=== PATIENT | female | born 1975 | race Caucasian/White ===

== ENCOUNTER → 2016-12-30 | Outpatient (CLI) | payer OTHER | LOC: FIMAGING 16:59 | PROVIDERS: ATTEND Midwife | DX: N83.202 Unspecified ovarian cyst, left side (principal) ==

== ENCOUNTER → 2017-01-27 | Outpatient (CLI) | payer OTHER | LOC: FIMAGING 15:48 | PROVIDERS: ATTEND Midwife | DX: N83.02 Follicular cyst of left ovary (principal); Z90.721 Acquired absence of ovaries, unilateral ==

== ENCOUNTER → 2017-10-16 | Outpatient (CLI) | payer OTHER | LOC: BMCIMAGING 08:09 | PROVIDERS: ATTEND Midwife | DX: N94.89 Other specified conditions associated with female genital organs and menstrual cycle (principal) ==

== ENCOUNTER → 2017-12-29 | Outpatient (CLI) | payer OTHER | LOC: FIMAGING 16:35 | PROVIDERS: ATTEND Midwife | DX: N83.02 Follicular cyst of left ovary (principal); N80.9 Endometriosis, unspecified; Z90.721 Acquired absence of ovaries, unilateral ==

== ENCOUNTER 2018-01-02 15:35 | Emergency (ER) | payer OTHER ==
[2018-01-02] MEDS ORDERED: RANITIDINE 50 MG/2 ML VIAL IVP ONE (15:40)
[2018-01-02] MEDS ORDERED: NS 1,000 ML IV ONE (15:40)
[2018-01-02] MEDS ORDERED: methylPREDNISolone SOD SUCC 125 MG/2 ML VIAL IVP ONE (15:40)
--- NOTE | 2018-01-02 15:40 | EDPHY ---
H & P Time Seen by Provider: 01/02/18 15:37 HPI/ROS: CHIEF COMPLAINT: Face and lip swelling, trouble breathing HISTORY OF PRESENT ILLNESS: Patient had previous anaphylaxis 15 years ago. Ate sushi today at [facility] and very soon afterwards then developed lip swelling and facial swelling as well as trouble breathing nausea and skin rash. Associated with itching. Symptoms severe. Associated with some nausea and some abdominal cramping as well. REVIEW OF SYSTEMS: Eye: no change in vision ENT: HPI Cardiac: no chest pain or syncope Pulmonary: Not coughing Abdomen: No vomiting or diarrhea Musculoskeletal: no back pain Skin: HPI Neuro: no headache Constitutional: no fever : no urinary symptoms A comprehensive 10 point review of systems is otherwise negative aside from elements mentioned in the history of present illness. PAST MEDICAL HISTORY: Previous anaphylaxis and endometriosis Social history: Nonsmoker General Appearance: Alert and conversant, cooperative. Eyes: No scleral icterus. ENT, Mouth: Mild angioedema uvula is midline, no stridor or drooling Respiratory: Normal respiratory effort, breath sounds equal, lungs are clear to auscultation. No wheezing. Cardiovascular: Regular rate and rhythm. Gastrointestinal: Abdomen is soft and non tender. Neurological: Alert, face symmetric, normal motor and sensory in extremities. Skin: Diffuse urticaria. Musculoskeletal: No peripheral edema. Psychiatric: Not agitated. Emergency Department course/MDM: Epi 0.3 mL IM for anaphylaxis, Benadryl 50 and ranitidine 50, Solu-Medrol 125 and normal saline 1 L. Unclear the trigger. 1640: Feels better, less rash, lips a little bit swollen, feels almost back to normal. Needs a refill of her EpiPen. 1748: Doing well, normal voice, feels well enough to go home. Little bit of left hand itching. A slight bilateral hand redness but no airway symptoms at this time. Will monitor, reasonable to do at home. She is in agreement. Smoking Status: Former smoker Constitutional: Initial Vital Signs Temperature (C) 36.6 C 01/02/18 16:00 Heart Rate 103 H 01/02/18 16:00 Respiratory Rate 16 01/02/18 16:00 Blood Pressure 131/81 H 01/02/18 16:00 O2 Sat (%) 99 01/02/18 16:00 O2 Delivery Mode Room Air Allergies/Adverse Reactions: Penicillins Allergy (Verified 01/02/18 16:04) ORAL SWELLING scopolamine [Scopolamine] Allergy (Verified 01/02/18 16:04) VISUAL DISTURBANCE flu vaccine Allergy (Uncoded 01/02/18 16:04) Home Medications: Medication Instructions Recorded [place] 3/Dha/Epa/Other Om3/D3 300 mg PO DAILY 07/14/14 1 tab PO DAILY 07/14/14 Hydrocodone/APAP 5/325 [[place] 1 - 2 tab PO Q4 PRN #30 tab 07/17/14 5/325 (*)] Ibuprofen [Motrin (*)] 600 mg PO Q6 PRN #30 tab 07/17/14 Valtrex 06/24/16 EPINEPHrine [Epipen 0.3 MG] 0.3 mg IM ONCE #2 syr 01/02/18 Estrogen,Con/M-Progest Acet 01/02/18 Famotidine [Pepcid] 20 mg PO BID #6 tab 01/02/18 predniSONE [prednisone 20mg (RX)] 40 mg PO DAILY 3 Days tab 01/02/18 Medical Decision Making Critical Care Time: Critical care time spent by me, Dr. Gage, exclusively with the care of this patient was 30 minutes, exclusive of PA or [employer] time and exclusive of separate procedures. The organ system at risk was allergic and airway and I ordered epinephrine, antihistamines, steroids, IV fluids and serial exam to stabilize the patient and prevent worsening of the patient's condition. - Data Points Medications Given: Discontinued Medications Diphenhydramine HCl (Benadryl Injection) 50 mg IVP EDNOW ONE Stop: 01/02/18 15:41 Last Admin: 01/02/18 15:46 Dose: 50 mg Epinephrine HCl (Epinephrine) 0.3 mg IM EDNOW ONE Stop: 01/02/18 15:41 Last Admin: 01/02/18 15:43 Dose: 0.3 mg Sodium Chloride (Ns) 1,000 mls @ 0 mls/hr IV ONCE ONE; Wide Open PRN Reason: Protocol Stop: 01/02/18 15:41 Last Admin: 01/02/18 15:54 Dose: 1,000 mls Methylprednisolone Sodium Succinate (Solu-Medrol) 125 mg IVP EDNOW ONE Stop: 01/02/18 15:41 Last Admin: 01/02/18 15:49 Dose: 125 mg Ranitidine HCl (Zantac) 50 mg IVP EDNOW ONE Stop: 01/02/18 15:41 Last Admin: 01/02/18 15:55 Dose: 50 mg Departure - Departure Disposition: Home, Routine, Self-Care Clinical Impression: Anaphylaxis Qualifiers: Encounter type: initial encounter Qualified Code(s): T78.2XXA - Anaphylactic shock, unspecified, initial encounter Condition: Good Instructions: Anaphylaxis (ED) Referrals: Marisela Merino MD [Primary Care Provider] - As per Instructions Prescriptions: EPINEPHrine [Epipen 0.3 MG] 0.3 mg IM ONCE #2 syr Famotidine [Pepcid] 20 mg PO BID #6 tab predniSONE [prednisone 20mg (RX)] 40 mg PO DAILY 3 Days tab
[2018-01-02 16:04] VITALS: TEMP 97.9
[2018-01-02 17:38] VITALS: PULSE 76
[2018-01-02 18:26] VITALS: BP 120/73; RESP 16; O2SAT 95
== END 2018-01-02 18:26 | disposition home or self-care (01) ==
DX: T78.2XXA Anaphylactic shock, unspecified, initial encounter (principal); E86.9 Volume depletion, unspecified; Z87.891 Personal history of nicotine dependence
CPT/HCPCS: 96374; J0171; J1200; J2780; J2930

== ENCOUNTER → 2018-04-24 | Outpatient (CLI) | payer OTHER ==
[~2018-04-24] MED LIST: GADOBUTROL 10 ML VIAL IVP ONE
== END ==
LOC: FIMAGING 07:04
PROVIDERS: ATTEND Midwife
DX: R10.2 Pelvic and perineal pain (principal); Z90.721 Acquired absence of ovaries, unilateral
CPT/HCPCS: A9585

== ENCOUNTER → 2018-10-14 | Outpatient (CLI) | payer OTHER | LOC: FIMAGING 07:05 | PROVIDERS: ATTEND Obstetrics & Gynecology | DX: N83.292 Other ovarian cyst, left side (principal); Z90.721 Acquired absence of ovaries, unilateral ==

== ENCOUNTER → 2019-01-04 | Outpatient (CLI) | payer OTHER | LOC: FIMAGING 16:03 | PROVIDERS: ATTEND Obstetrics & Gynecology | DX: Z12.31 Encounter for screening mammogram for malignant neoplasm of breast (principal) ==

== ENCOUNTER → 2019-03-19 | Outpatient (CLI) | payer OTHER | LOC: FIMAGING 14:42 | PROVIDERS: ATTEND Family Medicine | DX: R05 Cough (principal) ==

== ENCOUNTER → 2019-04-13 | Outpatient (CLI) | payer OTHER | LOC: BMCIMAGING 12:21 ==